=== PATIENT | female | born 1965 | race African-American/Black ===

== ENCOUNTER 2023-02-17 12:19 | Inpatient (IN) | payer BC ==
[~2023-02-17] VITALS: Ht 154.9 cm; Wt 96.7 kg
[2023-02-17] MEDS ORDERED: SODIUM CHLORIDE 0.9% 1,000 ML IV ONE (12:45)
[2023-02-17] MEDS ORDERED: ACETAMINOPHEN 325 MG TAB PO ONE (12:45)
[2023-02-17] MEDS ORDERED: ONDANSETRON HCL 4 MG/2 ML VIAL IV ONE (12:45)
[2023-02-17 13:44] LABS: Albumin 3.4 g/dL (3.4-5.0); BUN/Creatinine Ratio 12.4 (10.0-20.0); Calcium 9.1 mg/dL (8.5-10.1); Magnesium 2.8 mg/dL (1.6-2.6); Potassium 3.6 mmol/L (3.5-5.1)
[2023-02-17 13:47] LABS: Basophils # (auto) 0 10 ^3/uL (0-0.2); Basophils % (auto) 0.1 % (0.0-2.0); Eosinophils # (auto) 0 10 ^3/uL (0-0.8); Hematocrit 40.8 % (36.0-46.0); Hemoglobin 13.8 g/dL (12.2-16.2); Lymphocytes # (auto) 1.3 10 ^3/uL (0.4-5.4); Lymphocytes % (auto) 10.3 % (10.0-50.0); Mean Corpuscular Hemoglobin 32.1 pg (28.0-32.0); Mean Corpuscular Hgb Conc. 33.8 g/dL (32.0-36.0); Mean Corpuscular Volume 95.1 fL (80.0-100.0); Monocytes # (auto) 0.7 10 ^3/uL (0-1.3); Monocytes % (auto) 5.6 % (0.0-12.0); Neutrophils # (auto) 10.4 10 ^3/uL (1.6-8.6); Red Blood Cells 4.29 10^6/uL (4.0-5.20); Red Cell Distribution Width 12.6 % (11.8-14.3); White Blood Cell 12.4 10^3/uL (4.4-10.8)
[2023-02-17 13:53] LABS: Bilirubin, Total 0.6 mg/dL (0.2-1.0)
[2023-02-17 14:09] LABS: Urine Bacteria NONE SEEN /hpf (None Seen); Urine Mucus MODERATE (None Seen); Urine WBC 284 /hpf (0 - 5); Urine WBC Clumps PRESENT /hpf (None Seen)
[2023-02-17 14:13] LABS: Urine Specific Gravity 1.031 (1.001-1.035)
[2023-02-17 14:14] LABS: Urine Blood Negative /uL (Negative)
[2023-02-17] MEDS ORDERED: PIPERACILLIN-TAZOB 3.375GM 100 ML IV ONE (14:30)
[2023-02-17] MEDS ORDERED: TAMSULOSIN HYDROCHLORIDE 0.4 MG CAP PO ONE (16:00)
[2023-02-17] MEDS ORDERED: IOHEXOL 300 MG/ML 100ML BOTTLE IJ ONE ×3 (16:06→20:34)
[2023-02-17] MEDS ORDERED: HYDROmorphone HCL 2 MG/ML VL/or syr IV PRN (18:15)
[2023-02-17] MEDS ORDERED: hydrALAZINE HCL 20 MG/ML VL IV PRN (18:15)
[2023-02-17] MEDS ORDERED: LACTATED RINGER'S 1,000 ML IV ONE (18:15)
[2023-02-17] MEDS ORDERED: ONDANSETRON HCL 4 MG/2 ML VIAL IV PRN (18:15)
[2023-02-17] MEDS ORDERED: DOCUSATE SOD 100 MG CAP PO PRN (18:15)
[2023-02-17] MEDS: SODIUM CHLOR 0.9% PF (SALINE LOCK) 10ML VIAL/SYR IV SCH (22:00)
[2023-02-18] MEDS: HYDROcodone-ACET 5/325MG TAB PO PRN (03:13)
[2023-02-18] MEDS: SODIUM CHLOR 0.9% PF (SALINE LOCK) 10ML VIAL/SYR IV SCH ×3 (06:30→22:08)
[2023-02-18 07:40] VITALS: PULSE 87; RESP 16; O2SAT 97
[2023-02-18] MEDS: ENOXAPARIN SOD 40 MG/0.4 ML SYRINGE SC SCH (10:37)
[2023-02-18] MEDS: ACETAMINOPHEN 325 MG TAB PO PRN (18:16)
[2023-02-18 19:33] VITALS: BP 93/48; PULSE 87; PULSE 91; RESP 20; TEMP 99.7; O2SAT 95
[2023-02-18 22:00] VITALS: BP 116/67; PULSE 95; RESP 20; TEMP 99.6; O2SAT 95
[2023-02-19] VITALS (9 sets, daily range): BP systolic 89–107; BP diastolic 46–59; PULSE 55–88; RESP 12–20; TEMP 97.5–100.9; O2SAT 94–100
[2023-02-19] MEDS ORDERED: MANNITOL FTV 25% 12.5 GM/50 ML 50 ML IV ONE (00:45)
[2023-02-19] MEDS: SODIUM CHLOR 0.9% PF (SALINE LOCK) 10ML VIAL/SYR IV SCH ×3 (05:07→22:15)
[2023-02-19] MEDS: ENOXAPARIN SOD 40 MG/0.4 ML SYRINGE SC SCH (08:38)
[2023-02-19] MEDS: cefTRIAXone 1GM/50ML D5W 50 ML IV SCH (08:38)
[2023-02-19] MEDS ORDERED: CLINIMIX PER PHARMACY 0 ML IV SCH (11:15)
[2023-02-19 12:15] LABS: Albumin 2.6 g/dL (3.4-5.0); Calcium 8.2 mg/dL (8.5-10.1); Magnesium 2.6 mg/dL (1.6-2.6); Potassium 3.4 mmol/L (3.5-5.1)
[2023-02-19 12:20] LABS: BUN/Creatinine Ratio 12.3 (10.0-20.0); Bilirubin, Total 0.4 mg/dL (0.2-1.0); Phosphorus 2.7 mg/dL (2.5-4.90); Total Protein 6.3 g/dL (6.4-8.2)
[2023-02-19] MEDS: ACETAMINOPHEN 325 MG TAB PO PRN (12:56)
[2023-02-19] MEDS ORDERED: POTASSIUM PHOSPHATE 22 MEQ in SODIUM CHL 0.9% 100 ML IV ONE (16:00)
[2023-02-19] MEDS: TAMSULOSIN HYDROCHLORIDE 0.4 MG CAP PO SCH (18:00)
[2023-02-19] MEDS ORDERED: POTASSIUM CHL 20 Meq TABLET PO ONE (18:15)
[2023-02-19 19:34] LABS: Basophils # (auto) 0 10 ^3/uL (0-0.2); Basophils % (auto) 0.8 % (0.0-2.0); Eosinophils # (auto) 0 10 ^3/uL (0-0.8); Eosinophils % (auto) 0.1 % (0.0-7.0); Hematocrit 35.5 % (36.0-46.0); Hemoglobin 11.8 g/dL (12.2-16.2); Lymphocytes # (auto) 1.4 10 ^3/uL (0.4-5.4); Lymphocytes % (auto) 23.6 % (10.0-50.0); Mean Corpuscular Hemoglobin 31.4 pg (28.0-32.0); Mean Corpuscular Hgb Conc. 33.3 g/dL (32.0-36.0); Mean Corpuscular Volume 94.5 fL (80.0-100.0); Monocytes # (auto) 0.4 10 ^3/uL (0-1.3); Monocytes % (auto) 7.2 % (0.0-12.0); Neutrophils # (auto) 4.1 10 ^3/uL (1.6-8.6); Neutrophils % (auto) 68.3 % (37.0-80.0); Red Blood Cells 3.76 10^6/uL (4.0-5.20); Red Cell Distribution Width 12.5 % (11.8-14.3); White Blood Cell 5.9 10^3/uL (4.4-10.8)
[2023-02-19] MEDS: MEGESTROL ACET 400MG/10ML ORAL SUSP GT SCH (22:04)
[2023-02-19] MEDS: AMINO ACID INFUSION IN D10W 1,000 ML IV NR (22:04)
[2023-02-20] MEDS ORDERED: DEXTROSE (50%) 50ML SYRG IV SCH
[2023-02-20] MEDS: ACCU-CHEK COMFORT CURVE STRIP VI SCH ×5 (00:17→23:03)
[2023-02-20 05:00] VITALS: BP 94/48; PULSE 83; RESP 20; TEMP 98.2; O2SAT 99
[2023-02-20] MEDS: InsuLIN REG 1unit/0.01ml Soln (100units/ml) SC SCH ×5 (05:17→23:16)
[2023-02-20] MEDS: SODIUM CHLOR 0.9% PF (SALINE LOCK) 10ML VIAL/SYR IV SCH ×3 (05:18→23:03)
[2023-02-20 05:19] VITALS: BP 95/53
[2023-02-20 06:09] LABS: Basophils # (auto) 0 10 ^3/uL (0-0.2); Basophils % (auto) 0.2 % (0.0-2.0); Eosinophils # (auto) 0 10 ^3/uL (0-0.8); Eosinophils % (auto) 0.1 % (0.0-7.0); Hematocrit 33.7 % (36.0-46.0); Hemoglobin 11.4 g/dL (12.2-16.2); Mean Corpuscular Hgb Conc. 33.9 g/dL (32.0-36.0); Mean Corpuscular Volume 94.5 fL (80.0-100.0); Monocytes # (auto) 0.3 10 ^3/uL (0-1.3); Monocytes % (auto) 6.3 % (0.0-12.0); Neutrophils # (auto) 3.9 10 ^3/uL (1.6-8.6); Neutrophils % (auto) 74.4 % (37.0-80.0); Nucleated Red Blood Cells % 0.1 %; Red Blood Cells 3.57 10^6/uL (4.0-5.20); Red Cell Distribution Width 12.7 % (11.8-14.3); White Blood Cell 5.2 10^3/uL (4.4-10.8)
[2023-02-20 06:16] LABS: INR 1.07 (0.9-1.15); Partial Thromboplastin Time 34.7 SEC (24.5-34.5)
[2023-02-20 06:24] LABS: Potassium 3.2 mmol/L (3.5-5.1)
[2023-02-20 06:32] LABS: Albumin 2.4 g/dL (3.4-5.0); BUN/Creatinine Ratio 13.4 (10.0-20.0); Bilirubin, Total 0.4 mg/dL (0.2-1.0); Calcium 7.8 mg/dL (8.5-10.1); Magnesium 2.4 mg/dL (1.6-2.6); Phosphorus 2.1 mg/dL (2.5-4.90); Total Protein 6.1 g/dL (6.4-8.2)
[2023-02-20 08:15] VITALS: PULSE 85
[2023-02-20] MEDS: ENOXAPARIN SOD 40 MG/0.4 ML SYRINGE SC SCH (08:48)
[2023-02-20 09:00] VITALS: BP 94/47; PULSE 85; RESP 12; TEMP 99.5; O2SAT 95
[2023-02-20] MEDS: cefTRIAXone 1GM/50ML D5W 50 ML IV SCH (09:00)
[2023-02-20] MEDS: MEGESTROL ACET 400MG/10ML ORAL SUSP GT SCH ×2 (09:00→23:02)
[2023-02-20] MEDS ORDERED: POTASSIUM PHOSPHATE 44 MEQ in D5W 5% 250 ML IV ONE (09:00)
[2023-02-20] MEDS: HYDROcodone-ACET 5/325MG TAB PO PRN (09:05)
[2023-02-20 12:37] LABS: Hepatitis C Antibody Negative (Negative)
[2023-02-20 13:00] VITALS: BP 89/50; PULSE 72; RESP 14; TEMP 99.1; O2SAT 92
[2023-02-20] MEDS: TAMSULOSIN HYDROCHLORIDE 0.4 MG CAP PO SCH ×2 (18:00→18:09)
[2023-02-20] MEDS ORDERED: IOHEXOL 300 MG/ML 100ML BOTTLE IJ ONE (19:00)
[2023-02-20] MEDS ORDERED: MEPERIDINE HCL (50 MG/ML) 1 ML VIAL ONE (19:11)
[2023-02-20] MEDS ORDERED: fentaNYL CITRATE 100 MCG/2 ML VL ONE (19:11)
[2023-02-20] MEDS ORDERED: MIDAZOLAM HCL 2MG/2ML 2ml VIAL (1mg/ml) ONE (19:11)
[2023-02-20] MEDS ORDERED: KETOROLAC TROMETH 30 MG/ML 1ML VIAL ONE (19:12)
[2023-02-20] MEDS ORDERED: PROPOFOL 10 MG/ML 20 ML IV ONE (19:12)
[2023-02-20] MEDS ORDERED: DexAMETHasone SOD PHOS 10MG/1ML VIAL INJ ONE (19:12)
[2023-02-20] MEDS ORDERED: GLYCOPYRROLATE 0.2 MG/ML 1ML VIAL ONE (19:12)
[2023-02-20] MEDS ORDERED: LIDOCAINE 2% (LOCAL ANESTH.) PF 5ml SDV ONE (19:12)
[2023-02-20] MEDS ORDERED: ONDANSETRON HCL 4 MG/2 ML VIAL ONE (19:12)
[2023-02-20] MEDS ORDERED: HYDROmorphone HCL 2 MG/ML VL/or syr IV PRN (19:30)
[2023-02-20] MEDS ORDERED: ONDANSETRON HCL 4 MG/2 ML VIAL IV PRN (19:30)
[2023-02-20] MEDS ORDERED: ePHEDrine SULFATE 50 MG/ML AMP ONE (19:55)
[2023-02-20] MEDS: AMINO ACID INFUSION IN D10W 1,000 ML IV NR (20:24)
[2023-02-20 22:44] VITALS: BP 112/56; PULSE 76; RESP 18; TEMP 98.2; O2SAT 96
[2023-02-21] VITALS (7 sets, daily range): BP systolic 97–115; BP diastolic 52–74; PULSE 61–69; RESP 17–20; TEMP 97.6–98; O2SAT 96–100
[2023-02-21] MEDS: InsuLIN REG 1unit/0.01ml Soln (100units/ml) SC SCH (05:27)
[2023-02-21] MEDS: ACCU-CHEK COMFORT CURVE STRIP VI SCH (05:29)
[2023-02-21] MEDS: SODIUM CHLOR 0.9% PF (SALINE LOCK) 10ML VIAL/SYR IV SCH ×2 (05:36→13:33)
[2023-02-21 06:17] LABS: Basophils # (auto) 0 10 ^3/uL (0-0.2); Basophils % (auto) 0.1 % (0.0-2.0); Eosinophils # (auto) 0 10 ^3/uL (0-0.8); Hematocrit 34.6 % (36.0-46.0); Hemoglobin 11.7 g/dL (12.2-16.2); Lymphocytes # (auto) 0.8 10 ^3/uL (0.4-5.4); Lymphocytes % (auto) 16.9 % (10.0-50.0); Mean Corpuscular Hemoglobin 31.7 pg (28.0-32.0); Mean Corpuscular Hgb Conc. 33.9 g/dL (32.0-36.0); Mean Corpuscular Volume 93.7 fL (80.0-100.0); Monocytes # (auto) 0.1 10 ^3/uL (0-1.3); Monocytes % (auto) 3.2 % (0.0-12.0); Neutrophils # (auto) 3.6 10 ^3/uL (1.6-8.6); Neutrophils % (auto) 79.8 % (37.0-80.0); Red Cell Distribution Width 12.2 % (11.8-14.3); White Blood Cell 4.5 10^3/uL (4.4-10.8)
[2023-02-21 06:23] LABS: Albumin 2.6 g/dL (3.4-5.0); Calcium 8.3 mg/dL (8.5-10.1); Magnesium 2.6 mg/dL (1.6-2.6); Potassium 3.3 mmol/L (3.5-5.1)
[2023-02-21 06:27] LABS: BUN/Creatinine Ratio 17.9 (10.0-20.0); Bilirubin, Total 0.3 mg/dL (0.2-1.0); Phosphorus 2.9 mg/dL (2.5-4.90); Total Protein 6.4 g/dL (6.4-8.2)
[2023-02-21] MEDS ORDERED: POTASSIUM CHL 20MEQ/100ML 100 ML IV ONE (08:15)
[2023-02-21] MEDS: ENOXAPARIN SOD 40 MG/0.4 ML SYRINGE SC SCH (08:16)
[2023-02-21] MEDS: cefTRIAXone 1GM/50ML D5W 50 ML IV SCH (08:16)
[2023-02-21] MEDS: MEGESTROL ACET 400MG/10ML ORAL SUSP GT SCH (08:16)
[2023-02-21] MEDS: HYDROcodone-ACET 5/325MG TAB PO PRN ×2 (09:23→21:49)
[2023-02-21] MEDS: MEGESTROL ACET 400MG/10ML ORAL SUSP PO SCH ×3 (09:30→21:49)
[2023-02-22] MEDS: SODIUM CHLOR 0.9% PF (SALINE LOCK) 10ML VIAL/SYR IV SCH ×2 (01:36→05:51)
[2023-02-22 05:00] VITALS: BP 94/51; PULSE 64; RESP 16; TEMP 98; O2SAT 97
[2023-02-22 05:46] LABS: Basophils # (auto) 0 10 ^3/uL (0-0.2); Basophils % (auto) 0.1 % (0.0-2.0); Eosinophils # (auto) 0 10 ^3/uL (0-0.8); Hematocrit 31.2 % (36.0-46.0); Hemoglobin 10.5 g/dL (12.2-16.2); Lymphocytes # (auto) 1.7 10 ^3/uL (0.4-5.4); Lymphocytes % (auto) 21.6 % (10.0-50.0); Mean Corpuscular Hemoglobin 31.7 pg (28.0-32.0); Mean Corpuscular Hgb Conc. 33.8 g/dL (32.0-36.0); Mean Corpuscular Volume 93.9 fL (80.0-100.0); Monocytes # (auto) 0.8 10 ^3/uL (0-1.3); Monocytes % (auto) 9.8 % (0.0-12.0); Neutrophils # (auto) 5.5 10 ^3/uL (1.6-8.6); Neutrophils % (auto) 68.5 % (37.0-80.0); Nucleated Red Blood Cells % 0.1 %; Red Blood Cells 3.32 10^6/uL (4.0-5.20); Red Cell Distribution Width 12.4 % (11.8-14.3)
[2023-02-22 06:12] LABS: Potassium 3.4 mmol/L (3.5-5.1)
[2023-02-22 06:19] LABS: BUN/Creatinine Ratio 16.9 (10.0-20.0); Calcium 8.2 mg/dL (8.5-10.1)
[2023-02-22] MEDS ORDERED: POTASSIUM EFFERVESENT TAB 25 MEQ PO ONE (07:30)
[2023-02-22 08:15] VITALS: PULSE 60
[2023-02-22] MEDS: MEGESTROL ACET 400MG/10ML ORAL SUSP PO SCH (08:43)
[2023-02-22] MEDS: cefTRIAXone 1GM/50ML D5W 50 ML IV SCH (08:43)
[2023-02-22] MEDS: ENOXAPARIN SOD 40 MG/0.4 ML SYRINGE SC SCH (08:44)
[2023-02-22 09:00] VITALS: BP 103/63; PULSE 65; RESP 20; TEMP 97.7; O2SAT 98
[2023-02-22] MEDS ORDERED: HYDR-4902 PO (10:50)
[2023-02-22 11:46] VITALS: BP 103/63; PULSE 65; RESP 20; TEMP 97.7; O2SAT 98
== END 2023-02-22 13:06 | disposition home or self-care (01) | DRG 872 ==
LOC: ER 12:19 → TELE 18:30 → TELE-WESTW 02-18 18:58
PROVIDERS: ADMIT Internal Medicine; ATTEND Internal Medicine
PROC: BT1D1ZZ Fluoroscopy of Right Kidney, Ureter and Bladder using Low Osmolar Contrast (ICD-10-PCS; 2023-02-20)
PROC: 0TJ98ZZ Inspection of Ureter, Via Natural or Artificial Opening Endoscopic (ICD-10-PCS; principal; 2023-02-20 19:25)
DX: A41.9 Sepsis, unspecified organism (principal); N17.9 Acute kidney failure, unspecified; N20.1 Calculus of ureter; N30.00 Acute cystitis without hematuria; E44.0 Moderate protein-calorie malnutrition; I87.8 Other specified disorders of veins; E86.0 Dehydration; M51.16 Intervertebral disc disorders with radiculopathy, lumbar region; Z20.822 Contact with and (suspected) exposure to COVID-19; Z90.3 Acquired absence of stomach [part of]; Z98.84 Bariatric surgery status; Z90.710 Acquired absence of both cervix and uterus; Z68.38 Body mass index [BMI] 38.0-38.9, adult
CPT/HCPCS: 36415; 71045; 74018; 74176; 74177; 76000; 80048; 80053; 81001; 82550; 82962; 83605; 83690; 83735; 84100; 84478; 84484; 85025; 85610; 85730; 86141; 86308; 86803; 86850; 86900; 86901; 87040; 87086; 87340; 87426; 87804; 96361; 96365; G0378; J0696; J1100; J1815; J1885; J2001; J2250; J2405; J2543; J2704; J3480; J7060